=== PATIENT | male | born 1970 | race American Indian/Alaskan Native ===

== ENCOUNTER 2021-09-07 22:03 | Emergency (ER) | payer SELFPAY ==
[2021-09-08] MEDS ORDERED: MORPHINE 4 MG/1 ML INJ IV ONE (02:36)
[2021-09-08] MEDS ORDERED: ONDANSETRON 4 MG/2 ML INJ IV ONE (02:36)
[2021-09-08] MEDS ORDERED: MORPHINE 2 MG/1 ML INJ ONE (02:41)
--- NOTE | 2021-09-08 02:41 | Emergency Department Report ---
ED Back Pain/Injury HPI - General Chief Complaint: Back Pain/Injury Stated Complaint: BACK PAIN Time Seen by Provider: 09/08/21 02:13 Source: patient, EMS Limitations: No Limitations - History of Present Illness Initial Comments: Patient is 51 years old male with no significant past medical history. Patient presented to the ER via EMS from his work station for evaluation of sudden onset of lower back pain that happened while he was lifting boxes at [employer]. Patient describes his pain as 10 out of 10. Patient stated that pain increases with movement and improved with staying still. He denied any bowel or bladder incontinence. No weakness numbness or tingling sensation. MD Complaint: back pain, back injury -: Sudden, Last night Place: work Quality: sharp Improves With: immobilization Worsens With: movement Context: while lifting Associated Symptoms: denies other symptoms, difficulty walking. denies: numbness - Related Data Allergies Allergy/AdvReac Type Severity Reaction Status Date / Time aspirin Allergy Rash Verified 09/08/21 03:10 ibuprofen Allergy Rash Verified 09/08/21 03:10 ED Review of Systems ROS: Stated complaint: BACK PAIN Other details as noted in HPI Comment: All other systems reviewed and negative Cardiovascular: denies: chest pain Gastrointestinal: denies: abdominal pain, nausea Musculoskeletal: back pain Neurological: denies: headache, weakness, numbness, paresthesias, confusion ED Physical Exam - General Limitations: No Limitations General appearance: alert, in distress - Head Head exam: Present: atraumatic, normocephalic, normal inspection - Eye Eye exam: Present: normal appearance - ENT ENT exam: Present: normal exam, normal orophraynx, mucous membranes moist - Respiratory Respiratory exam: Present: normal lung sounds bilaterally - Cardiovascular Cardiovascular Exam: Present: regular rate, normal rhythm, normal heart sounds - GI/Abdominal GI/Abdominal exam: Present: soft, normal bowel sounds. Absent: distended, tenderness, guarding, rebound, rigid, organomegaly, bruit, pulsatile mass, hernia - Extremities Exam Extremities exam: Present: normal inspection, full ROM, normal capillary refill. Absent: tenderness - Back Exam Back exam: Present: normal inspection, full ROM, muscle spasm, paraspinal tenderness. Absent: CVA tenderness (R), CVA tenderness (L), vertebral tenderness - Neurological Exam Neurological exam: Present: alert, oriented X3, CN II-XII intact. Absent: motor sensory deficit - Psychiatric Psychiatric exam: Present: normal mood - Skin Skin exam: Present: warm, intact, normal color ED Course Vital Signs 09/07/21 22:21 Temperature 98.1 F Pulse Rate 68 Respiratory 18 Rate Blood Pressure 128/70 [Right] O2 Sat by Pulse 99 Oximetry ED Medical Decision Making - Radiology Data Radiology results: report reviewed - Medical Decision Making Patient is 51 years old male with no significant past medical history. Patient presented to the ER via EMS from his work station for evaluation of sudden onset of lower back pain that happened while he was lifting boxes at [employer]. Patient describes his pain as 10 out of 10. Patient stated that pain increases with movement and improved with staying still. He denied any bowel or bladder incontinence. No weakness numbness or tingling sensation. Patient received multiple pain medication including morphine and fentanyl. Patient stated that his pain is much better. CT lumbar spine showed multiple degenerative disc disease. Patient given prescription for Ultram and advised to follow-up with back specialist. I gave patient [facility] to follow-up with Dr. Roverto Sequeira. And patient advised to return to the ER if he develop any new symptoms. Critical care attestation.: If time is entered above; I have spent that time in minutes in the direct care of this critically ill patient, excluding procedure time. ED Disposition Clinical Impression: Acute back pain, Degenerative disc disease, lumbar Disposition: HOME / SELF CARE / HOMELESS Is pt being admited?: No Condition: Stable Instructions: Radicular Pain, Acute Back Pain, Adult Referrals: ROVERTO ARCOS II, MD [Staff Physician] - 3-5 Days
[2021-09-08] MEDS ORDERED: fentaNYL 100 MCG/2 ML INJ IV ONE ×2 (03:16→04:13)
--- NOTE | 2021-09-08 03:54 | Cat Scan Report ---
CT lumbar spine without contrast INDICATION: Acute lower back pain from injury at work. TECHNIQUE: Axial imaging performed through the lumbar spine without the use of contrast. Sagittal a nd coronal reconstructed images were also reviewed. All CT scans at this location are performed usin g CT dose reduction for ALARA by means of automated exposure control. COMPARISON: None FINDINGS: Alignment: Spinal alignment is normal. Bones: There is no acute osseous abnormality. Moderate multilevel discogenic DJD is present. Degen erative facet and discogenic degenerative changes are present at L4-L5 and L5-S1 causing moderate rig ht-sided neural foraminal stenosis and mild to moderate bilateral neural foraminal stenosis. Soft tissues: No acute or significant incidental soft tissue abnormality. IMPRESSION: No acute fracture or subluxation. Moderate multilevel degenerative changes at L4-L5 and L 5-S1, as above. Moderate right-sided neural foraminal stenosis at L4-L5 and bilaterally at L5-S1. Signer Name: Janak Gilbert MD Signed: 09/08/2021 3:50 AM Workstation Name: [email or web address]
[2021-09-08 05:23] VITALS: BP 128/69
== END 2021-09-08 04:50 | disposition home or self-care (01) ==
LOC: ED 22:03
DX: M51.36 Other intervertebral disc degeneration, lumbar region (principal); Z88.6 Allergy status to analgesic agent; Z88.8 Allergy status to other drugs, medicaments and biological substances; Z79.899 Other long term (current) drug therapy
CPT/HCPCS: 72131; 96374; 96375; 96376; 99284; J2270; J2405; J3010